=== PATIENT | female | born 1985 | race Caucasian/White ===

== ENCOUNTER 2024-07-22 10:05 | Day surgery (SDC) | payer OTHER ==
[2024-07-06 16:37] VITALS: BP 112/65
[~2024-07-22] VITALS: Ht 154.9 cm; Wt 97.7 kg
[~2024-07-22 10:05] MED LIST: ADDERALL 12.512.5 MG; CLONIDINE HCL0.1 MG PO; DECARA K PO; EFFEXOR XR150 MG PO; EFFEXOR XR75 MG PO; FLUOXETINE HCL20 MG PO; GABAPENTIN300 MG PO; IBLOOD GLUCOSE TEST STRIP 1 EA TEST VI PRN; LACTATED RINGER'S 1,000 ML IV SCH; LIDOCAINE HCL 1% 5 ML SDV INJ ONE; MIRAPEX ER1.5 MG PO; PRAZOSIN HCL1 MG PO; PRAZOSIN HCL5 MG PO; PRENATAL FORMU1 EACH PO
[2024-07-22 10:29] VITALS: BP 149/108
[2024-07-22] MEDS ORDERED: TESTOSTERO200 MG/1 M IM (10:37)
[2024-07-22] MEDS ORDERED: HYDROCODON-ACE1 EA10 PO (10:38)
[2024-07-22] MEDS ORDERED: ARIPIPRAZOLE2 MG PO (10:39)
[2024-07-22] MEDS ORDERED: AMPHETAMINE SAL10 MG PO (10:39)
[2024-07-22] MEDS ORDERED: VITAMIN D21250 MCG PO (10:39)
[2024-07-22] MEDS ORDERED: VENLAFAXINE HC150 MG PO (10:39)
[2024-07-22] MEDS ORDERED: VENLAFAXINE HCL75 M2 PO (10:40)
[2024-07-22] MEDS ORDERED: DEXTROAMP-AMPHE30 MG PO (10:40)
[2024-07-22] MEDS ORDERED: PRAMIPEXOLE DI0.5 MG PO (10:41)
[2024-07-22] MEDS ORDERED: MULTIPLE VITAM1 EAC2 PO (10:45)
[2024-07-22] MEDS ORDERED: PROPRANOLOL HCL10 MG PO (10:48)
[2024-07-22] MEDS ORDERED: ACETAMINOPHEN 1,000 MG/100 ML VIAL ONE (11:53)
[2024-07-22] MEDS ORDERED: dexmedeTOMIDine HCl 200 MCG/2 ML VIAL ONE (11:53)
[2024-07-22] MEDS ORDERED: DEXAMETHASONE SOD PHOS 4 MG/ML VIAL ONE (11:53)
[2024-07-22] MEDS ORDERED: MIDAZOLAM HCL 2 MG/2 ML VIAL ONE (11:53)
[2024-07-22] MEDS ORDERED: KETOROLAC TROMETHAMINE 30 MG/ML VIAL ONE (11:53)
[2024-07-22] MEDS ORDERED: SUGAMMADEX SODIUM 200 MG/2 ML ML ONE (11:53)
[2024-07-22] MEDS ORDERED: ondansetron HCL 4 MG/2 ML VIAL ONE (11:53)
[2024-07-22] MEDS ORDERED: fentaNYL citrate 100 MCG/2 ML VIAL ONE (11:53)
[2024-07-22] MEDS ORDERED: ROCURONIUM BROMIDE 50 MG/5 ML SYR ONE (11:53)
[2024-07-22] MEDS ORDERED: LIDOCAINE HCL 2% 5 ML SDV ONE (11:53)
[2024-07-22] MEDS ORDERED: LIDOCAINE HCL 2% 20 MG/ML VIAL INJ ONE (11:53)
[2024-07-22] MEDS ORDERED: propofoL 200 MG/20 ML VIAL ONE (11:53)
[2024-07-22] MEDS ORDERED: NALOXONE HCL 0.4 MG SYR IV PRN (12:45)
[2024-07-22] MEDS ORDERED: HYDROmorphone HCL 1 MG/ML SYR IV PRN (12:45)
[2024-07-22] MEDS ORDERED: PROCHLORPERAZINE EDISYLATE 10 MG/2 ML VIAL IV PRN (12:45)
[2024-07-22] MEDS ORDERED: IBLOOD GLUCOSE TEST STRIP 1 EA TEST VI PRN (12:45)
[2024-07-22] MEDS ORDERED: fentaNYL citrate 50 MCG/ML SDV IV PRN (12:45)
[2024-07-22] MEDS ORDERED: droPERidol 5 MG/2 ML VIAL IV PRN (12:45)
[2024-07-22] MEDS ORDERED: ondansetron HCL 4 MG/2 ML VIAL IV PRN (12:45)
--- NOTE | 2024-07-22 13:41 | NUR ---
07/22/24 1341 Ursula Brown 1331-PATIENT ARRIVED TO PACU ON 6L MASK RR EVEN. ORAL AIRWAY IN PLACE NONAROUSABLE. SR HR 70'S. IVF INFUSING. INICISION SITES INTACT. ELAINA PAD IN PLACE. 1332-PATIENT AROUSING ORAL AIRWAY REMOVED REACHING HANDS TO FACE AND TALKING. 6L MASK RR EVEN 100% PATIENT ORIENTED TO PACU DENIES PAIN OR NAUSEA REQUESTING WATER. EDUCATED ABOUT WAITING FOR WATER UNTIL WAKING UP A LITTLE MORE PATIENT HAS EYES CLOSED. DOZES BACK TO SLEEP.
[2024-07-22] MEDS ORDERED: SIMETHICONE 80 MG CHEW PO PRN (14:00)
[2024-07-22] MEDS ORDERED: HYDROCODONE/ACETA 5/325 TAB PO PRN (14:00)
[2024-07-22] MEDS ORDERED: LACTATED RINGER'S 1,000 ML IV SCH (14:00)
[2024-07-22 14:25] VITALS: BP 108/75
--- NOTE | 2024-07-22 14:41 | NUR ---
PT ARRIVED BACK TO DS ON RA, AAOX3, ANSWERING QUESTIONS APPROPRIATELY, AND SIPPING ON ICE WATER. REPORT RECEIVED FROM WRECKING SUPERVISOR. SURGICAL SITES VISUALIZED WITH WRECKING SUPERVISOR. NO BLEEDING OR DRAINAGE NOTED FROM LAP SITES X3. PT DENIES NAUSEA WHEN ASKED. PT REPORTS PAIN 3/10 AND VOICES THIS TO BE TOLERABLE. PT EDUCATED ON USE OF PILLOW OVER ABD FOR COUGHING, DEEP BREATHING, AND POSITION CHANGES TO HELP MINIMIZE DISCOMFORT WITH THESE ACTIVITIES. PT HAS DEMONSTRATED UNDERSTANDING WELL VERBALIZED UNDERSTANDING. IV SITE ASSESSED. VS TAKEN. PT PROVIDED WITH JUSTIN AND MELISSA DAWSON. PTS SISTER IN ROOM AT BEDSIDE. ALL QUESTIONS ANSWERED. BED IN LOWEST POSITION, WHEELS LOCKED, BILAT RAILS IN PLACE. CALL LIGHT WITHIN PT REACH.
[2024-07-22 15:25] VITALS: BP 129/72
--- NOTE | 2024-07-22 15:40 | NUR ---
1520-INTO PTS ROOM FOR ROUTINE REASSESSMENT AND DC EDUCATION. PT PROVIDED WITH VERBAL AND WRITTEN DC EDUCATION WELL POST-OP APPT FOR 08/07/24 AT 0900. ALL QUESTIONS ANSWERED. PT AND HER SISTER VERBALIZED UNDERSTANDING OF DC EDUCATION GIVEN. 1525-ROUTINE REASSESSMENT COMPLETED. VS TAKEN. IV SITE ASSESSED AND SL'D. PT DENIES NAUSEA WHEN ASKED AND APPEARS TO BE TOLERATING PO FOOD AND FLUIDS WITHOUT ISSUES NOTED/REPORTED. PT REPORTS PAIN IMPROVED TO 1/10 AND REPORTS THIS TO BE TOLERABLE AND DENIES NEED FOR PAIN INTERVENTIONS AT THIS TIME. SURGICAL SITES VISUALIZED AND NO ACUTE CHANGES NOTED FROM INITIAL ASSESSMENT. PERIPAD WITH SCANT AMT OF SANGUINEOUS DRAINAGE PRESENT. PT PROVIDED WITH MESH PANTIES TO HELP ELAINA PAD IN PLACE. PT ASSISTED TO SITTING ON EOB AND THEN IN STANDING SLOWLY. PT AMBULATED [facility] TO RESTROOM WITH RN SBA FOR SAFETY. PT PROVIDED WITH NEW ELAINA-PAD. PT ABLE TO VOID APPROX 200 ML OF BLOOD TINGED URINE. PT ASSISTED BACK TO ROOM. 1535-PT DRESSING FOR DISCHARGE WITH RN AND SISTERS ASSIST FOR SAFETY. SURGICAL SITE VISUALIZED POST AMBULATION AND REMAINS CDI. 1540-IV REMOVED. TIP APPEARS INTACT. PRESSURE DRSG APPLIED WITH GAUZE AND COABN.
--- NOTE | 2024-07-22 15:45 | NUR ---
PT DISCHARGED FROM DS VIA WC TO PASSENGER SIDE OF [employer] VEHICLE. ALL PERSONAL BELONINGS TAKEN WITH PT.
[2024-07-22] MEDS ORDERED: SEVOFLURANE 250 ML BTL INH ONE (15:55)
[2024-07-22] MEDS ORDERED: SIMETHICONE 80 MG CHEW PO SCH (17:00)
--- NOTE | 2024-07-27 16:26 | PATH ---
[facility] [address], [place] [address] Signed SPECIMEN(S): A FALLOPIAN TUBES, BILATERAL SPECIMEN SOURCE: A. FALLOPIAN TUBES, BILATERAL CLINICAL HISTORY: Request for sterilization FINAL PATHOLOGIC DIAGNOSIS: Bilateral fallopian tubes: - Two segments of benign fimbriated oviduct. JVR MICROSCOPIC EXAMINATION: Histologic sections of all submitted blocks are examined by light microscopy. These findings, together with the gross examination, support the pathologic diagnosis. GROSS DESCRIPTION: The specimen, labeled and designated "Guzman, bilateral fallopian tubes," is received in formalin and consists of two red-brown fimbriated fallopian tube segments (6.2 cm in length and ranging in diameter from 0.6-1.0 cm, and 7.0 cm in length and ranging in diameter from 0.6-0.9 cm). One of the segments is arbitrarily inked blue. Both segments are serially sectioned to reveal pink-jiang to red-brown soft cut surfaces. Financial Reporting Specialist sections including the fimbriae entirely are submitted in cassette (A1-A2). VB (under the direct supervision of a pathologist) The Gross Description was prepared using a voice recognition system. The report was reviewed for accuracy; however, sound-alike word errors, addition and/or deletions may occur. If there is any question about this report, please contact Client Services. ADDITIONAL NOTES: Immunohistochemical and/or in situ hybridization studies if performed in this case included appropriate positive controls that reacted as expected. This test was developed and its performance characteristics determined by [facility]. It has not been cleared or approved by the U.S. Food and Drug Administration. The FDA has determined that such clearance or approval is not necessary. This test is used for clinical purposes. It should not be regarded PATIENT NAME: FANNY GUZMAN PATHOLOGY DATE OF : 89 REPORT #: [id number] PHYSICIAN: [facility] PCP: JEFFERSON ALEJANDRO NP REPORT IS CONFIDENTIAL AND NOT TO BE RELEASED WITHOUT AUTHORIZATION [facility] [address] [place], [place] [address] Signed as investigational or for research. [facility] is certified under the Clinical Laboratory Improvement Amendments of 1988 (CLIA) as qualified to perform high complexity clinical laboratory testing. PERFORMING LABORATORY: Technical component was performed by [facility], [address] [place] [id number] (CLIA# [id number]). Professional interpretation was performed by [facility] [place] - [address] [place] [address] (CLIA#: [id number]). Diagnostician: Randy Aburto MD Pathologist Electronically Signed 07/27/2024 Copies: ~ PATIENT NAME: FANNY GUZMAN PATHOLOGY DATE OF : 89 REPORT #: [id number] PHYSICIAN: [facility] PCP: JEFFERSON ALEJANDRO NP REPORT IS CONFIDENTIAL AND NOT TO BE RELEASED WITHOUT AUTHORIZATION
== END 2024-07-22 15:45 | disposition home or self-care (01) ==
LOC: DS 10:05 → OPS 10:05 → EDSEX 12:45 → OPS 12:45 → DS 12:45 → OPS 15:45
PROVIDERS: ATTEND Obstetrics & Gynecology
PROC: 0UT74ZZ Resection of Bilateral Fallopian Tubes, Percutaneous Endoscopic Approach (ICD-10-PCS; principal; 2024-07-22 11:50)
DX: Z30.2 Encounter for sterilization (principal); F64.0 Transsexualism; F43.10 Post-traumatic stress disorder, unspecified; G47.33 Obstructive sleep apnea (adult) (pediatric); E66.01 Morbid (severe) obesity due to excess calories; Z99.89 Dependence on other enabling machines and devices; Z79.899 Other long term (current) drug therapy; Z68.41 Body mass index [BMI] 40.0-44.9, adult
CPT/HCPCS: 00840; 84703; J0131; J1100; J1885; J2003; J2250; J2405; J2704; J3010; J3490; J7121